=== PATIENT | female | born 1990 | race Caucasian/White ===

== ENCOUNTER 2016-12-11 09:27 | Emergency (ER) | payer OTHER ==
[2016-12-11] MEDS ORDERED: FAMOTIDINE 20 MG TABLET ONE (10:16)
[2016-12-11] MEDS ORDERED: PREDNISONE 20 MG TABLET ONE (10:16)
[2016-12-11] MEDS ORDERED: DIPHENHYDRAMINE HCL 25 MG CAPSULE ONE (10:16)
== END 2016-12-11 10:38 | disposition home or self-care (01) ==
LOC: ED 09:27
DX: L50.0 Allergic urticaria (principal)
CPT/HCPCS: 99283 ×2; A9270 ×2; J7512